=== PATIENT | male | born 1980 | race Caucasian/White ===

== ENCOUNTER 2022-09-16 19:04 | Emergency (ER) | payer SELFPAY ==
[~2022-09-16] VITALS: Ht 172.7 cm; Wt 93.0 kg
[2022-09-16] MEDS ORDERED: FLUORESCEIN SOD(OPTH) 1 MG STRP ONE (19:29)
[2022-09-16] MEDS ORDERED: EYE IRRIGATION (OPTH) 120 ML BTL ONE (19:29)
[2022-09-16] MEDS ORDERED: TETRACAINE HCL 0.5% OPTH SOLN 4 ML BTL ONE (19:29)
[2022-09-16] MEDS ORDERED: FLUORESCEIN SOD(OPTH) 1 MG STRP OP ONE (19:45)
[2022-09-16] MEDS ORDERED: TETRACAINE HCL 0.5% OPTH SOLN 4 ML BTL OP ONE (19:45)
[2022-09-16] MEDS ORDERED: VIGAMOX3 ML OD (19:49)
[2022-09-16] MEDS ORDERED: MEDROL4 M2 PO (19:49)
== END 2022-09-16 20:05 | disposition home or self-care (01) ==
LOC: ER 19:23
DX: L23.7 Allergic contact dermatitis due to plants, except food (principal); T15.91XA Foreign body on external eye, part unspecified, right eye, initial encounter; X58.XXXA Exposure to other specified factors, initial encounter; Y99.0 Civilian activity done for income or pay
CPT/HCPCS: 99282